=== PATIENT | female | born 1970 | race African-American/Black ===

== ENCOUNTER 2016-12-19 09:52 | Outpatient (CLI) ==
--- NOTE | 2016-12-19 12:03 | MAMMO ---
EXAM: Bilateral digital screening mammogram History: Screening Comparison: Bilateral mammogram 04/14/2015 Findings: MLO and CC views of bilateral breasts demonstrate heterogeneously dense breast parenchyma which can obscure small lesions. Stable benign bilateral breast calcifications. There are no carmen nant masses, no suspicious microcalcifications and no architectural distortions Impression: Benign stable mammogram. Recommend followup routine screening mammography in 1 year. BIRADS 2
== END 2016-12-19 09:53 | disposition home or self-care (01) ==
LOC: RAD 09:52
PROVIDERS: ATTEND Internal Medicine
DX: Z12.31 Encounter for screening mammogram for malignant neoplasm of breast (principal)

== ENCOUNTER 2017-12-26 06:36 | Outpatient (CLI) ==
--- NOTE | 2017-12-26 10:26 | STRESSECHO ---
Date of Test: 12/26/17 Reason for Exam: SOB, PALPITATIONS, MITRAL VALVE PROLAPSE Ordering Physician: DR. BOUCHRA OVIEDO Current Medications: NO MEDICATION Physical Findings: S1, S2, NO S3 Target Heart Rate: 147/173 Resting EKG: SINUS RHYTHM/ LEFT VENTRICULAR HYPERTROPHY S-T SEGMENT STAGE MPH/GRADE HEART RATE BPM BLOOD PRESSURE MMHG RHYTHM +/- ELEVATION DEPRESSION SYMPTOMS,COMMENTS At Rest 80 116/62 SR X NONE 1 1.7/10% 120 130/79 SR X NONE 2 2.5/12% 130/70 SR X NONE 3 3.4/14% 4 4.2/16% 5 5.0/18% Immediately after 160 SR X FATIGUE Durations of Exercise: 6:42 Maximum Heart Rate Reached: 160 Reason for Termination: FATIGUE 4 MINUTES POST EXERCISE: HR 86 BPM, BP 120/72 MMHG, SR, +/-, NO COMMENTS INTERPRETATION: 99% OXYGEN SATURATION WITH EXERCISE ON ROOM AIR METS 9.1 1. NO EVIDENCE OF ISCHEMIA BY ST-T WAVE 2. NO CHEST PAIN OR CHEST DISCOMFORT 3. BLOOD PRESSURE RESPONSE: NORMAL AT REST AND WITH EXERCISE 4. NO ARRHYTHMIAS MILDLY HYPOKINETIC LEFT VENTRICLE WITH IMPROVED LEFT VENTRICULAR CONTRACTILITY WITH EXERCISE MTDD
--- NOTE | 2017-12-26 10:30 | ECHOSTRESS ---
Date of Exam: 12/26/17 Ordering Physician: DR. BOUCHRA OVIEDO Reason for Echo: SOB, PALPITATIONS, STRESS TEST--NO ISCHEMIA M-Mode Normal Adult Results LV Dimensions Normal Adult Results AoV Opening excursions >1.6 LVEDD-base- 3.5-5.8 Ao root dimensions 2.0-3.7 LVESD-base- 3.1-4.6 L. Atrium dimensions 1.9-3.8 Post. Wall thickness 0.8-1.1 IV septum (thickness) 0.7-1.2 Post. Wall excursion 0.72-1.3 Septal motion Systolic motion R. Ventricular cavity 1.5-2.0 LVEF 60% Paradoxical septal wall motion 2-D: MILDLY HYPOKINETIC STIFF LEFT VENTRICLE AT REST AND WITH IMPROVED LEFT VENTRICULAR CONTRACTILITY M-MODE: MV: AV: TV: PV: CHAMBER SIZE: WALL MOTION: MILDLY HYPOKINETIC STIFF LEFT VENTRICLE AT REST AND WITH IMPROVED LEFT VENTRICULAR CONTRACTILITY PERICARDIUM: INTERPRETATION: 1. MILDLY HYPOKINETIC STIFF LEFT VENTRICLE AT REST AND WITH IMPROVED LEFT VENTRICULAR CONTRACTILITY MTDD
--- NOTE | 2017-12-26 10:37 | ECHO2D ---
Date of Exam: 12/26/17 Ordering Physician: DR. BOUCHRA OVIEDO Room #: OP Reason for Echo: SOB, PALPITATIONS M-Mode Normal Adult Results LV Dimensions Normal Adult Results AoV Opening excursions >1.6 >1.6 LVEDD-base- 3.5-5.8 4.2 Ao root dimensions 2.0-3.7 3.1 LVESD-base- 3.1-4.6 L. Atrium dimensions 1.9-3.8 3.2 Post. Wall thickness 0.8-1.1 1.3 IV septum (thickness) 0.7-1.2 1.2 Post. Wall excursion 0.72-1.3 0.8 Septal motion 0.7 Systolic motion R. Ventricular cavity 1.5-2.0 NORMAL LVEF 60% 50% Paradoxical septal wall motion NORMAL 2-D : MITRAL VALVE PROLAPSE NOTED ON LEFT PARASTERNAL LONG AXIS AND APICAL FOUR CHAMBER VIEW, MILDLY HYPOKINETIC LEFT VENTRICLE, AORTIC AND TRICUSPID VALVES NORMAL, NO EFFUSION, NO THROMBUS M-MODE: MV: MITRAL VALVE PROLAPSE LATE SYSTOLIC AV: NORMAL TV: NORMAL PV: CHAMBER SIZE: NORMAL WALL MOTION: MILDLY HYPOKINETIC LEFT VENTRICLE PERICARDIUM: NORMAL INTERPRETATION: 1. BORDERLINE LEFT VENTRICULAR HYPERTROPHY 2. MITRAL VALVE PROLAPSE LATE SYSTOLIC 3. STIFF LEFT VENTRICLE WITH EJECTION FRACTION 50% 4. NORMAL LEFT VENTRICLE AND LEFT ATRIAL SIZE 5. NORMAL AORTIC AND TRICUSPID VALVES MTDD
== END 2017-12-26 06:37 | disposition home or self-care (01) ==
LOC: CAR 06:36
PROVIDERS: ATTEND Internal Medicine
DX: R06.02 Shortness of breath (principal); R00.2 Palpitations

== ENCOUNTER → 2018-01-31 | Outpatient (REF) ==
--- NOTE | 2018-01-31 12:00 | DI ---
Exam: Two x-rays of the chest. Comparison: 01/23/2015. Reason for exam: Screening. FINDINGS: No pneumothorax, pleural effusion, or focal consolidation. The cardiac silhouette is not enlarged. The imaged osseous structures appear grossly unremarkable without acute fracture. 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 Impression: No acute cardiopulmonary process.
== END ==
LOC: RAD 10:44
DX: Z02.89 Encounter for other administrative examinations (principal)

== ENCOUNTER 2019-04-17 15:00 | Outpatient (RCR) ==
--- NOTE | 2019-04-12 16:37 | RS.OPPTDN ---
Subjective Date of Note: 04/12/19 Visit #: 4 Number of visits approved by Insurance: [id number] Date of Evaluation: 04/05/19 Payer Source: Insurance Treatment Diagnosis: patellar instability L knee, L knee pain, hamstring tightness Current Subjective/complaints:: Patient reports tightness to the L posterior knee and medial aspect. States she has tried standing stretches today, but can' t seem to improve it. *Precautions: n/a - Treatment Modality: Ultrasound Parameters/Method Applied: continuous @ 1.5 w/cm2 x 10 mins to the L medial and lateral portion of the knee. Pulsed @ 0.8 w/cm2 x 4 mins same location Patient Position: Supine - Heat/Cryotherapy Treatment: Hot Pack (12 mins to the posterior L knee and medially supine) Interventions - Exercise/Activities/Manual Therapy Exercises/Activities: Patient receives assisted stretches to heel cords and HS ( R) x 3. Ankle over bolster to assist with stretching hamstrings statically. DF with green tband x 20. AAROM for knee flexion. Patient performs QS, SAQ 2# , hooklying hip add with ball, hip abd with knee extended, all x 10 reps. Hooklying hip abd with red tband, LAQ and hip flexion without weight x 10. Stationary bike x 6mins for/1 min reverse. Continued with education of diagnosis and body mechanics pertaining to work and home chores. Total minutes of Exercise: 25 Manual Therapy: n/a HOME EXERCISE PROGRAM: pt given written HEP including: QS, SLR, SLR with ext rotation, hamstring stretch. - Charges Timed Code Treatment Minutes: 37 Total Treatment Time: 51 Procedures billed for this date of service:: hp, u/s, ex2 Assessment: Patient presents with increased tightness to the L knee posteriorally with burning sensation intermittently. She demo reduction in knee extension, but improved with static stretching and stationary bike. She ambulates in with limited knee extension during swing stage for the LLE, but amb with improved heel strike and reduced pain upon leaving therapy today. 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
--- NOTE | 2019-04-17 16:37 | RS.OPPTDN ---
Subjective Date of Note: 04/16/19 Visit #: 5 Number of visits approved by Insurance: na Date of Evaluation: 04/05/19 Payer Source: Insurance Treatment Diagnosis: patellar instability L knee, L knee pain, hamstring tightness Current Subjective/complaints:: Reports left knee pain improving. *Precautions: n/a Pain Assessment - Pain Description Pain Location: left knee Pain Description: Tightness Current Pain Intensity: mild - Treatment Modality: Ultrasound Parameters/Method Applied: [id number] US at 1.5w/cm2 at 50% pulsed to the left knee joint prior to EX. Patient Position: Supine Interventions - Exercise/Activities/Manual Therapy Exercises/Activities: Assisted stretches to hamstirngs and heel cords, bilaterally. Quad sets with tactile cues. DF and ham curls, with green tband. AAROM for knee flexion. Hooklying hip add with ball, hip abd with knee extended, all x 10 reps. Hooklying hip abd with red tband, hip flexion without weight. SLR and SLR/VMO. Standing hip x4 direction with red theraband. Stationary bike x 5mins for/1 min reverse. Total minutes of Exercise: 35mins Manual Therapy: n/a HOME EXERCISE PROGRAM: pt given written HEP including: QS, SLR, SLR with ext rotation, hamstring stretch. Standing hip x4 direction with red theraband. - Charges Timed Code Treatment Minutes: 45mins Total Treatment Time: 48mins Procedures billed for this date of service:: US, EX2 Assessment: Patient progressing with HEP. 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
== END 2019-05-11 23:59 ==
PROVIDERS: ATTEND Physician Assistant
DX: M25.362 Other instability, left knee (principal)